=== PATIENT | male | born 1965 | race Caucasian/White ===

== ENCOUNTER 2018-01-05 12:24 | Emergency (ER) | payer MEDICARE ==
[~2018-01-05] VITALS: Ht 182.9 cm; Wt 90.7 kg
[2018-01-05] MEDS ORDERED: ASPIR 8181 MG PO (12:41)
[2018-01-05] MEDS ORDERED: LIPITOR 10 MG10 M1 PO (12:41)
[2018-01-05] MEDS ORDERED: ATIVAN0.5 MG PO (12:42)
[2018-01-05] MEDS ORDERED: PROPRANOLOL 4040 M1 PO (12:42)
[2018-01-05] MEDS ORDERED: OXCARBAZEPINE300 MG PO (12:43)
[2018-01-05] MEDS ORDERED: LISINOPRIL10 MG PO (12:44)
[2018-01-05] MEDS ORDERED: FISH OIL 1,001000 M2 PO (12:44)
[2018-01-05 12:55] LABS: ABSOLUTE BASOPHILS 0.1 thou/uL (0.0-0.2); ABSOLUTE EOSINOPHILS 0.1 thou/uL (0.0-0.7); ABSOLUTE LYMPHOCYTES 1.3 thou/uL (0.8-5.3); ABSOLUTE MONOCYTES 0.5 thou/uL (0.0-1.2); ABSOLUTE NEUTROPHILS 3.8 thou/uL (1.6-8.1); BASOPHILS 0.9 %; EOSINOPHILS 1.4 %; HEMOGLOBIN 15.9 gm/dL (14.0-18.0); LYMPHOCYTES 22.9 %; MCH 32.1 pg (26.0-34.0); MCHC 34.5 g/dL (28.0-37.0); MCV 93.2 fL (80.0-100.0); MONOCYTES 8.1 %; MPV 7.5 fl. (7.2-11.1); NUCLEATED RBCS 0 /100WBC; PLATELET COUNT* 259 thou/uL (150-400); POLYS 66.7 %; RBC 4.93 mil/uL (4.50-6.00); RDW-CV 12.9 % (10.5-14.5); WBC 5.8 thou/uL (4.0-11.0)
[2018-01-05 13:07] LABS: PROTIME 10.5 Seconds (9.20-11.50)
[2018-01-05 13:08] LABS: ANION GAP 3 mmol/L (7-16); BUN 16 mg/dL (7-18); CHLORIDE 103 mmol/L (98-107); CO2 32 mmol/L (21-32); CREATININE 0.9 mg/dL (0.6-1.3); GLUCOSE 128 mg/dL (70-99); SODIUM 138 mmol/L (136-145)
[2018-01-05 13:19] LABS: ALBUMIN 3.7 g/dL (3.4-5.0); ALKALINE PHOSPHATASE 60 U/L (46-116); LIPASE 237 U/L (73-393); NT-PRO BRAIN NAT PEPTIDE 73 pg/mL (<300); SGOT 19 U/L (15-37); SGPT 33 U/L (30-65); TOTAL BILIRUBIN 0.4 mg/dL (<0.1-1.0); TOTAL PROTEIN 6.7 g/dL (6.4-8.2); TROPONIN-I LEVEL <0.06 ng/mL (<0.06)
[2018-01-05 15:23] VITALS: BP 108/76
--- NOTE | 2018-01-05 18:15 | EKG ---
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
== END 2018-01-05 15:24 | disposition home or self-care (01) ==
LOC: M.ERS 12:24
PROVIDERS: Emergency Medicine
DX: R07.9 Chest pain, unspecified (principal); E78.00 Pure hypercholesterolemia, unspecified; F41.9 Anxiety disorder, unspecified

== ENCOUNTER 2018-03-28 13:37 | Emergency (ER) | payer MEDICARE ==
[~2018-03-28] VITALS: Ht 185.4 cm; Wt 90.7 kg
[~2018-03-28 13:37] MED LIST: ASPIR 8181 MG PO; ATIVAN0.5 MG PO; FISH OIL 1,001000 M2 PO; LIPITOR 10 MG10 M1 PO; LISINOPRIL10 MG PO; OXCARBAZEPINE300 MG PO; PROPRANOLOL 4040 M1 PO
[2018-03-28 14:38] VITALS: BP 153/87
== END 2018-03-28 14:40 | disposition home or self-care (01) ==
LOC: M.ERS 13:37
DX: F41.9 Anxiety disorder, unspecified (principal); Z76.0 Encounter for issue of repeat prescription; E78.00 Pure hypercholesterolemia, unspecified